=== PATIENT | female | born 1950 | race Caucasian/White ===

== ENCOUNTER 2016-12-12 21:03 | Emergency (ER) | payer OTHER ==
[~2016-12-12] VITALS: Ht 165.1 cm; Wt 119.2 kg
[~2016-12-12 21:03] MED LIST: AMLO10TA4 PO; ATEN100T PO; ATOR10TA88 PO; GLC500 PO; LISI-725 PO; LSX20 PO; PRLSR20 PO
[2016-12-12 21:16] VITALS: Ht 165.1 cm; Wt 119.2 kg
[2016-12-12] MEDS ORDERED: PANT40TA PO (21:42)
[2016-12-12] MEDS ORDERED: FAMOTIDINE 20MG/102 ML D5W IV STA (21:48)
[2016-12-12] MEDS ORDERED: ALUMINUM/MAGNESIUM SUSP 30 ML UDC PO STA ×2 (21:48→23:27)
[2016-12-12] MEDS ORDERED: LIDOCAINE HCL 2% VISC SOLN 20 ML UDC PO STA (21:48)
[2016-12-12 22:23] LABS: BASO % 0.2 %; BASO ABS # 0.02 K/uL (0-0.2); COMPLETE YES; EOS % 2.7 %; HEMATOCRIT 42.3 % (37-47); IG% 0.2 %; LYMPH % 22.3 %; LYMPH ABS # 1.83 K/uL (1.2-3.4); MEAN CELL VOLUME 93.2 fL (80-100); MEAN CORPUSCULAR HEMOGLOBIN 31.7 pg (25-34); MEAN PLATELET VOLUME 10.8 fL (7.4-10.4); NEUT % 65.6 %; PLATELET COUNT 388 K/uL (130-400); RED BLOOD COUNT 4.54 M/uL (4.2-5.4); WHITE BLOOD COUNT 8.19 K/uL (4.8-10.8)
--- NOTE | 2016-12-12 22:40 | DIAGNOSTIC IMAGING REPORT ---
CHEST ONE VIEW PORTABLE HISTORY: Atypical chest pain. COMPARISON: Chest 05/14/2009. FINDINGS: The heart remains mildly enlarged. No focal lung consolidations to suggest pneumonia. No evidence for pulmonary edema. No pleural effusions. No pneumothorax. IMPRESSION: Stable mild cardiomegaly. No acute process within the chest. Electronically signed by: Carson Ledesma M.D. 12/12/2016 10:38 PM Dictated Date/Time: 12/12/2016 10:37 PM
[2016-12-12 22:47] LABS: BUN/CREATININE RATIO 25.1 (10-20); CALCIUM 9.2 mg/dl (8.5-10.1); CREATININE 0.99 mg/dl (0.60-1.20); POTASSIUM 3.7 mmol/L (3.5-5.1)
[2016-12-12 23:04] LABS: PARTIAL THROMBOPLASTIN RATIO 1.1; PROTHROMBIN TIME (PATIENT) 10.9 SECONDS (9.0-12.0)
[2016-12-12 23:40] VITALS: BP 158/91; PULSE 92; TEMP 36.5; O2SAT 95
--- NOTE | 2016-12-13 01:45 | EMERGENCY ROOM VISIT NOTE ---
History Report prepared by Joce: Merissa Chacon Under the Supervision of: Dr. Fernandez Corbett M.D. First contact with patient: 21:35 Chief Complaint: OTHER COMPLAINT Stated Complaint: HEART BURN History of Present Illness The patient is a 66 year old female who presents to the Emergency Room with complaints of constant heart burn beginning earlier today. The patient has a history of heart burn for years. She was on Prilosec but her doctor switched her to Protonix which she states doesn't work as well for her. She states that she has not taken her Protonix for the past week because she kept forgetting to fill the prescription. She reports a burning sensation in her stomach, up into her esophagus, and into her throat. She notes a bad taste in her mouth. The patient denies chest pain, shortness of breath, diaphoresis, and lightheadedness. She spoke with a nurse today who advised her to come to the ED. She took her Protonix today at 3pm. The patient was diagnosed with a sinus infection yesterday and was started on Keflex. She rates her current pain as a 5 /10. Source of History: patient Onset: earlier today Position: chest Symptom Intensity: 5/10 Quality: burning Timing: constant Modifying Factors (Worsening): other (medication noncompliance) Associated Symptoms: No SOB, No chest pain, No diaphoresis Review of Systems See HPI for pertinent positives & negatives. A total of 10 systems reviewed and were otherwise negative. Past Medical & Surgical Medical Problems: (1) Diabetes mellitus (2) HTN (hypertension) Family History Cancer Diabetes mellitus FH: heart disease Hypertension Kidney disease Kidney stones Social History Smoking Status: Former Smoker Alcohol Use: none Drug Use: none Marital Status: Current/Historical Medications Scheduled Amlodipine Besylate (Norvasc), 10 MG PO QPM Atenolol (Tenormin), 100 MG PO DAILY Atenolol (Tenormin), 50 MG PO QPM Atorvastatin (Lipitor), 10 MG PO DAILY Lisinopril (Zestril), 20 MG PO BID Metformin Hcl (Glucophage *), 500 MG PO BID Pantoprazole (Protonix), 40 MG PO DAILY Allergies Coded Allergies: Adhesives (Verified Allergy, Unknown, UNKN, 12/12/16) Diphenhydramine (Verified Allergy, Unknown, UNKN, 12/12/16) Fexofenadine (Verified Allergy, Unknown, UNKN, 12/12/16) Latex1 -Allergic Contact Dermititis (Verified Allergy, Unknown, RASH, ) Morphine (Verified Allergy, Unknown, UNKN, 12/12/16) Sulfa Drugs (Verified Allergy, Unknown, UNKN, 12/12/16) Prednisone (Verified Adverse Reaction, Unknown, TACHYCARDIA, 12/12/16) Uncoded Allergies: SYMPATHOMIMADR (Adverse Reaction, Unknown, HYPER, 12/15/09) Physical Exam Vital Signs Date Time Temp Pulse Resp B/P Pulse Ox O2 Delivery O2 Flow Rate FiO2 12/12/16 23:40 36.5 92 18 158/91 95 12/12/16 23:39 92 18 158/91 95 Room Air 12/12/16 22:28 Room Air 12/12/16 21:16 36.5 92 18 178/93 95 Room Air Physical Exam Constitutional: Vital signs reviewed. Eyes: Pupils are equal round reactive to light. Conjunctiva are noninjected. ENT: Pharynx is clear without erythema or exudate. Mucous membranes are moist. Neck supple without meningeal signs. Respiratory: Clear to auscultation bilaterally. Breath sounds are equal bilaterally. Cardiovascular: Regular rate and rhythm. No rubs or gallops. GI: Soft, nondistended and nontender. Bowel sounds are present. Musculoskeletal: No peripheral edema. No lower extremity tenderness. Integumentary: No cyanosis. Neurological: The patient is awake and alert. No focal deficits. Psychiatric: Normal affect. Medical Decision & Procedures ER Provider Diagnostic Interpretation: Radiology results as stated below per my review and the radiologist's interpretation: CHEST ONE VIEW PORTABLE HISTORY: Atypical chest pain. COMPARISON: Chest 05/14/2009. FINDINGS: The heart remains mildly enlarged. No focal lung consolidations to suggest pneumonia. No evidence for pulmonary edema. No pleural effusions. No pneumothorax. IMPRESSION: Stable mild cardiomegaly. No acute process within the chest. Electronically signed by: Carson Ledesma M.D. 12/12/2016 10:38 PM Dictated Date/Time: 12/12/2016 10:37 PM Laboratory Results 12/12/16 22:10 Red Blood Count 4.54, Mean Corpuscular Volume 93.2, Mean Corpuscular Hemoglobin 31.7, Mean Corpuscular Hemoglobin Concent 34.0, Mean Platelet Volume 10.8, Neutrophils (%) (Auto) 65.6, Lymphocytes (%) (Auto) 22.3, Monocytes (%) (Auto) 9.0, Eosinophils (%) (Auto) 2.7, Basophils (%) (Auto) 0.2, Neutrophils # (Auto) 5.36, Lymphocytes # (Auto) 1.83, Monocytes # (Auto) 0.74, Eosinophils # (Auto) 0.22, Basophils # (Auto) 0.02 12/12/16 22:10 Test 12/12/16 22:10 12/12/16 22:18 12/12/16 23:29 White Blood Count 8.19 K/uL (4.8-10.8) Red Blood Count 4.54 M/uL (4.2-5.4) Hemoglobin 14.4 g/dL (12.0-16.0) Hematocrit 42.3 % (37-47) Mean Corpuscular Volume 93.2 fL (80-100) Mean Corpuscular Hemoglobin 31.7 pg (25-34) Mean Corpuscular Hemoglobin Concent 34.0 g/dl (32-36) Platelet Count 388 K/uL (130-400) Mean Platelet Volume 10.8 fL (7.4-10.4) Neutrophils (%) (Auto) 65.6 % Lymphocytes (%) (Auto) 22.3 % Monocytes (%) (Auto) 9.0 % Eosinophils (%) (Auto) 2.7 % Basophils (%) (Auto) 0.2 % Neutrophils # (Auto) 5.36 K/uL (1.4-6.5) Lymphocytes # (Auto) 1.83 K/uL (1.2-3.4) Monocytes # (Auto) 0.74 K/uL (0.11-0.59) Eosinophils # (Auto) 0.22 K/uL (0-0.5) Basophils # (Auto) 0.02 K/uL (0-0.2) RDW Standard Deviation 46.1 fL (36.4-46.3) RDW Coefficient of Variation 13.5 % (11.5-14.5) Immature Granulocyte % (Auto) 0.2 % Immature Granulocyte # (Auto) 0.02 K/uL (0.00-0.02) Prothrombin Time 10.9 SECONDS (9.0-12.0) Prothromb Time International Ratio 1.0 (0.9-1.1) Activated Partial Thromboplast Time 29.2 SECONDS (21.0-31.0) Partial Thromboplastin Ratio 1.1 Anion Gap 10.0 mmol/L (3-11) Est Creatinine Clear Calc Drug Dose 71.3 ml/min Estimated GFR () 68.3 Estimated GFR (Non- 59.0 BUN/Creatinine Ratio 25.1 (10-20) Calcium Level 9.2 mg/dl (8.5-10.1) Bedside Troponin I 0.000 ng/ml (0-0.045) Bedside Glucose 133 mg/dl (70-90) Laboratory results as reviewed by me. Medications Administered Medications (Trade) Dose Ordered Sig/Ashley Route Start Time Stop Time Status Last Admin Dose Admin Lidocaine HCl (Viscous Lidocaine 2% Soln) 10 ml NOW STAT PO 12/12/16 21:48 12/12/16 21:49 DC 12/12/16 22:23 10 ML Al Hydroxide/Mg Hydroxide (Maalox Susp) 30 ml NOW STAT PO 12/12/16 21:48 12/12/16 21:49 DC 12/12/16 22:23 30 ML Famotidine (Pepcid 20mg/100 ml) 20 mg ONE STAT IV 12/12/16 21:48 12/12/16 21:49 DC 12/12/16 22:23 20 MG Al Hydroxide/Mg Hydroxide (Maalox Susp) 30 ml NOW STAT PO 12/12/16 23:27 12/12/16 23:28 DC 12/12/16 23:38 30 ML ECG Indication: chest pain Rate (beats per minute): 87 Rhythm: normal sinus Findings: no acute ischemic change, no ectopy ED Course 2134: The patient was evaluated in room C5. A complete history and physical exam was performed. 2147: Famotidine 20 mg IV, Maalox Susp 30 ml PO, Lidocaine HCl 10 ml PO 2208: I reassessed the patient. She has just received her GI cocktail. 2306: I reassessed the patient at this time. Her heart burn is much better after her GI cocktail, although she notes that she is burping more. She denies abdominal pain or chest pain. I discussed the results and treatment plan with the patient as well as return instructions. I answered all pertaining questions that she had. She expressed understanding and verbalized agreement. The patient will be discharged home. Medical Decision This is a 66-year-old female who presents with burning in her chest into her throat. Differential diagnosis includes GERD, heartburn, esophagitis, CT, pleurisy. I did perform a limited focused review of portions of the patient's old chart on the electronic medical record. The patient has had no recent pertinent visits to this hospital. I did evaluate the patient as noted above. The patient is presenting with burning in her chest into her throat with a bad taste in her mouth. She has a long-standing history of heartburn and states it feels similar to her previous heartburn. She has not taken her Protonix for the past week because she has not refilled her prescription. She states she has no chest pain, shortness breath, lightheadedness or diaphoresis. She called her doctor's nurse who recommended she be evaluated in the ED. IV access was established. The patient was placed on a continuous director of cardiac rehabilitation. I did order and personally review the patient's 12-lead EKG and chest x-ray as described above. There are no acute ischemic changes on 12 EKG. I did order and review the patient's blood work as noted in the electronic medical record. Her troponin is negative. I did treat the patient with a GI cocktail and Pepcid IV. I did reassess the patient. Her symptoms were significantly improved after the medications I gave her. She does state that they started to come back slightly and requested a dose of Maalox to go home with. She was advised to continue taking her Protonix and was given return instructions as outlined below. She was discharged in good condition. Impression Primary Impression: Heart burn Scribe Attestation The scribe's documentation has been prepared under my direct and personally reviewed by me in its entirety. I confirm that the note above accurately reflects all work, treatment, procedures, and medical decision making performed by me. Departure Information Dispostion Home / Self-Care Referrals Conner Dubois III, M.D. Forms HOME CARE DOCUMENTATION FORM, IMPORTANT VISIT INFORMATION, WORK / SCHOOL INSTRUCTIONS Patient Instructions ED GERD, My [facility] Additional Instructions You have been examined and treated today on an emergency basis only. This is not a substitute for, or an effort to provide, complete comprehensive medical care. It is impossible to recognize and treat all injuries or illnesses in a single emergency department visit. It is therefore important that you follow up closely with your physician. Call as soon as possible for an appointment. Return for worsening symptoms or if you develop fever, vomiting, abdominal pain , chest pain, shortness of breath, lightheadedness, profuse sweating or any other concerning symptoms.
== END 2016-12-12 23:41 | disposition home or self-care (01) ==
LOC: C.EDB 21:05 → C.EDC 23:41
DX: R12 Heartburn (principal); I10 Essential (primary) hypertension; E11.9 Type 2 diabetes mellitus without complications; Z79.899 Other long term (current) drug therapy; Z87.891 Personal history of nicotine dependence; Z79.84 Long term (current) use of oral hypoglycemic drugs; Z88.2 Allergy status to sulfonamides; Z88.5 Allergy status to narcotic agent; Z88.8 Allergy status to other drugs, medicaments and biological substances; Z80.9 Family history of malignant neoplasm, unspecified; Z83.3 Family history of diabetes mellitus; Z82.49 Family history of ischemic heart disease and other diseases of the circulatory system; Z84.1 Family history of disorders of kidney and ureter

== ENCOUNTER 2017-01-07 09:50 | Emergency (ER) | payer OTHER ==
[~2017-01-07] VITALS: Ht 165.1 cm; Wt 119.5 kg
[~2017-01-07 09:50] MED LIST changes: -LSX20 PO; +PANT40TA PO; -PRLSR20 PO
[2017-01-07 09:56] VITALS: TEMP 36.7; Ht 165.1 cm; Wt 119.5 kg
[2017-01-07] MEDS ORDERED: LIDOCAINE HCL 2% VISC SOLN 20 ML UDC PO STA (11:21)
[2017-01-07] MEDS ORDERED: ALUMINUM/MAGNESIUM SUSP 30 ML UDC PO STA (11:21)
[2017-01-07] MEDS ORDERED: LORAZEPAM 2 MG/ML 1 ML VIAL IV STA ×2 (11:21→11:25)
[2017-01-07] MEDS ORDERED: METOPROLOL TARTRATE 1 MG/ML VIAL IV STA ×2 (11:24→13:36)
[2017-01-07] MEDS ORDERED: PRLSR20 PO (11:33)
[2017-01-07] MEDS ORDERED: INDA1TAB3 PO (11:33)
[2017-01-07 12:00] VITALS: O2SAT 98
[2017-01-07 12:14] LABS: BASO % 0.4 %; BASO ABS # 0.03 K/uL (0-0.2); COMPLETE YES; EOS % 2.3 %; HEMATOCRIT 41.9 % (37-47); IG% 0.4 %; LYMPH % 17.7 %; LYMPH ABS # 1.47 K/uL (1.2-3.4); MEAN CELL VOLUME 90.7 fL (80-100); MEAN CORPUSCULAR HEMOGLOBIN 31.2 pg (25-34); MEAN CORPUSCULAR HGB CONC 34.4 g/dl (32-36); MEAN PLATELET VOLUME 10.6 fL (7.4-10.4); MONO % 6.6 %; NEUT % 72.6 %; PLATELET COUNT 359 K/uL (130-400); RED BLOOD COUNT 4.62 M/uL (4.2-5.4)
--- NOTE | 2017-01-07 12:16 | DIAGNOSTIC IMAGING REPORT ---
CHEST ONE VIEW PORTABLE CLINICAL HISTORY: Chest pain. COMPARISON STUDY: Chest radiograph December 12, 2016 per FINDINGS: Lung volumes are normal. Lungs are clear. There is no pneumothorax or pleural effusion. Borderline cardiomegaly is unchanged. There is no evidence of pulmonary edema. IMPRESSION: No acute cardiopulmonary findings. Electronically signed by: Avila Raphael M.D. 01/07/2017 12:15 PM Dictated Date/Time: 01/07/2017 12:14 PM
[2017-01-07 12:25] LABS: PARTIAL THROMBOPLASTIN RATIO 1.1; PROTHROMBIN TIME (PATIENT) 10.5 SECONDS (9.0-12.0)
[2017-01-07 12:33] LABS: BUN/CREATININE RATIO 24.7 (10-20); CALCIUM 9.8 mg/dl (8.5-10.1); CREATININE 0.74 mg/dl (0.60-1.20); POTASSIUM 3.7 mmol/L (3.5-5.1)
[2017-01-07] MEDS ORDERED: SUCRALFATE 1 GM/10 ML UDC PO STA (13:36)
[2017-01-07] MEDS ORDERED: CRFL PO (14:06)
[2017-01-07 14:24] VITALS: BP 164/78; PULSE 75; O2SAT 94
--- NOTE | 2017-01-07 17:43 | EMERGENCY ROOM VISIT NOTE ---
History Report prepared by Joce: Ellen Sheridan Under the Supervision of: Dr. Fernandez Corbett M.D. First contact with patient: 11:08 Chief Complaint: GI ASSESSMENT Stated Complaint: HEARTBURN Nursing Triage Summary: Pt states she was seen here and diagnosed with acid reflux, pt states she has been trying to get into her doc office, unable to, states still has the burning , taking omeprazole. bp in triage 194/90 - pt states she took her morning dose History of Present Illness The patient is a 66 year old female who presents to the Emergency Room with complaints of constant heartburn starting about a month ago. The patient was evaluated in the Emergency Room 3 weeks ago for similar symptoms. She had been given a GI cocktail with relief. She was discharged home. Since discharge, her symptoms have not improved. She describes it to be a burning sensation in her chest. She denies any bad taste in her mouth. She denies any worsening pain with eating or with certain foods. She denies a loss of appetite. She started taking the Protonix again since discharge. She did not have any relief with the Protonix. 3 days ago, she switched from Protonix to Prilosec without relief. She started having watery diarrhea today. She also complains of high blood pressure. She has a history of hypertension and has been taking her medications as prescribed. She denies diaphoresis, fevers, shortness of breath, vomiting, black/bloody stools, lower extremity pain/swelling, or any other complaints. Source of History: patient Onset: about a month ago Position: chest Quality: other (heartburn) Timing: constant Modifying Factors (Relieving): other (Boost, Prilosec, Protonix without relief) Associated Symptoms: + diarrhea, No SOB, No diaphoresis, No fevers, No vomiting Review of Systems See HPI for pertinent positives & negatives. A total of 10 systems reviewed and were otherwise negative. Past Medical & Surgical Medical Problems: (1) Diabetes mellitus (2) HTN (hypertension) Family History Cancer Diabetes mellitus FH: heart disease Hypertension Kidney disease Kidney stones Social History Smoking Status: Former Smoker Alcohol Use: none Drug Use: none Marital Status: Current/Historical Medications Scheduled Amlodipine Besylate (Norvasc), 10 MG PO QPM Atenolol (Tenormin), 100 MG PO DAILY Atenolol (Tenormin), 50 MG PO QPM Atorvastatin (Lipitor), 10 MG PO DAILY Indapamide (Lozol), 1.25 MG PO DAILY Lisinopril (Zestril), 20 MG PO BID Metformin Hcl (Glucophage *), 500 MG PO BID Omeprazole (Prilosec), 20 MG PO DAILY Sucralfate (Carafate), 10 ML PO BID Allergies Coded Allergies: Adhesives (Verified Allergy, Unknown, UNKN, 01/07/17) Diphenhydramine (Verified Allergy, Unknown, UNKN, 01/07/17) Fexofenadine (Verified Allergy, Unknown, UNKN, 01/07/17) Latex1 -Allergic Contact Dermititis (Verified Allergy, Unknown, RASH, 01/07) Morphine (Verified Allergy, Unknown, UNKN, 01/07/17) Sulfa Drugs (Verified Allergy, Unknown, UNKN, 01/07/17) Prednisone (Verified Adverse Reaction, Unknown, TACHYCARDIA, 01/07/17) Uncoded Allergies: SYMPATHOMIMADR (Adverse Reaction, Unknown, HYPER, 12/15/09) Physical Exam Vital Signs Date Time Temp Pulse Resp B/P Pulse Ox O2 Delivery O2 Flow Rate FiO2 01/07/17 14:24 75 20 164/78 94 01/07/17 14:01 74 20 153/66 99 01/07/17 13:58 72 141/95 01/07/17 13:17 71 13 180/89 94 Room Air 01/07/17 12:06 70 19 172/85 94 Room Air 01/07/17 12:00 98 Room Air 01/07/17 11:59 79 203/107 01/07/17 11:00 77 16 203/107 98 Room Air 01/07/17 09:56 36.7 77 18 194/90 99 Room Air Physical Exam Constitutional: Vital signs reviewed. Eyes: Pupils are equal round reactive to light. Conjunctiva are noninjected. ENT: Pharynx is clear without erythema or exudate. Mucous membranes are moist. Neck supple without meningeal signs. Respiratory: Clear to auscultation bilaterally. Breath sounds are equal bilaterally. Cardiovascular: Regular rate and rhythm. No rubs or gallops. GI: Soft, nondistended and nontender. Bowel sounds are present. Musculoskeletal: No peripheral edema. No lower extremity tenderness. Integumentary: No cyanosis. Neurological: The patient is awake and alert. No focal deficits. Psychiatric: Anxious. Medical Decision & Procedures ER Provider Diagnostic Interpretation: X-ray results as stated below per interpretation by me and the radiologist: CHEST ONE VIEW PORTABLE CLINICAL HISTORY: Chest pain. COMPARISON STUDY: Chest radiograph December 12, 2016 per FINDINGS: Lung volumes are normal. Lungs are clear. There is no pneumothorax or pleural effusion. Borderline cardiomegaly is unchanged. There is no evidence of pulmonary edema. IMPRESSION: No acute cardiopulmonary findings. Electronically signed by: Avila Raphael M.D. 01/07/2017 12:15 PM Dictated Date/Time: 01/07/2017 12:14 PM Laboratory Results 01/07/17 11:55 Red Blood Count 4.62, Mean Corpuscular Volume 90.7, Mean Corpuscular Hemoglobin 31.2, Mean Corpuscular Hemoglobin Concent 34.4, Mean Platelet Volume 10.6, Neutrophils (%) (Auto) 72.6, Lymphocytes (%) (Auto) 17.7, Monocytes (%) (Auto) 6.6, Eosinophils (%) (Auto) 2.3, Basophils (%) (Auto) 0.4, Neutrophils # (Auto) 6.03, Lymphocytes # (Auto) 1.47, Monocytes # (Auto) 0.55, Eosinophils # (Auto) 0.19, Basophils # (Auto) 0.03 01/07/17 11:55 Test 01/07/17 11:55 White Blood Count 8.30 K/uL (4.8-10.8) Red Blood Count 4.62 M/uL (4.2-5.4) Hemoglobin 14.4 g/dL (12.0-16.0) Hematocrit 41.9 % (37-47) Mean Corpuscular Volume 90.7 fL (80-100) Mean Corpuscular Hemoglobin 31.2 pg (25-34) Mean Corpuscular Hemoglobin Concent 34.4 g/dl (32-36) Platelet Count 359 K/uL (130-400) Mean Platelet Volume 10.6 fL (7.4-10.4) Neutrophils (%) (Auto) 72.6 % Lymphocytes (%) (Auto) 17.7 % Monocytes (%) (Auto) 6.6 % Eosinophils (%) (Auto) 2.3 % Basophils (%) (Auto) 0.4 % Neutrophils # (Auto) 6.03 K/uL (1.4-6.5) Lymphocytes # (Auto) 1.47 K/uL (1.2-3.4) Monocytes # (Auto) 0.55 K/uL (0.11-0.59) Eosinophils # (Auto) 0.19 K/uL (0-0.5) Basophils # (Auto) 0.03 K/uL (0-0.2) RDW Standard Deviation 43.3 fL (36.4-46.3) RDW Coefficient of Variation 13.2 % (11.5-14.5) Immature Granulocyte % (Auto) 0.4 % Immature Granulocyte # (Auto) 0.03 K/uL (0.00-0.02) Prothrombin Time 10.5 SECONDS (9.0-12.0) Prothromb Time International Ratio 1.0 (0.9-1.1) Activated Partial Thromboplast Time 28.8 SECONDS (21.0-31.0) Partial Thromboplastin Ratio 1.1 Anion Gap 8.0 mmol/L (3-11) Est Creatinine Clear Calc Drug Dose 95.5 ml/min Estimated GFR () 97.2 Estimated GFR (Non- 83.8 BUN/Creatinine Ratio 24.7 (10-20) Calcium Level 9.8 mg/dl (8.5-10.1) Total Bilirubin 0.5 mg/dl (0.2-1) Direct Bilirubin 0.1 mg/dl (0-0.2) Aspartate Amino Transf (AST/SGOT) 17 U/L (15-37) Alanine Aminotransferase (ALT/SGPT) 19 U/L (12-78) Alkaline Phosphatase 81 U/L (45-117) Troponin I < 0.015 ng/ml (0-0.045) Total Protein 8.3 gm/dl (6.4-8.2) Albumin 4.1 gm/dl (3.4-5.0) Lipase 195 U/L (73-393) Laboratory results as reviewed by me. Medications Administered Medications (Trade) Dose Ordered Sig/Ashley Route Start Time Stop Time Status Last Admin Dose Admin Lidocaine HCl (Viscous Lidocaine 2% Soln) 10 ml NOW STAT PO 01/07/17 11:21 01/07/17 11:23 DC 01/07/17 11:57 10 ML Al Hydroxide/Mg Hydroxide (Maalox Susp) 30 ml NOW STAT PO 01/07/17 11:21 01/07/17 11:24 DC 01/07/17 11:58 30 ML Metoprolol Tartrate (Lopressor Iv) 2.5 mg NOW STAT IV 01/07/17 11:24 01/07/17 11:25 DC 01/07/17 11:59 2.5 MG Lorazepam (Ativan Inj) 0.5 mg NOW STAT IV 01/07/17 11:25 01/07/17 11:26 DC 01/07/17 11:58 0.5 MG Sucralfate (Carafate Susp) 1 gm NOW STAT PO 01/07/17 13:36 01/07/17 13:38 DC 01/07/17 14:07 1 GM Metoprolol Tartrate (Lopressor Iv) 2.5 mg NOW STAT IV 01/07/17 13:36 01/07/17 13:38 DC 01/07/17 13:58 0.5 MG ECG Indication: other (heartburn) Rate (beats per minute): 70 Rhythm: normal sinus Findings: Q waves (Lead III), no acute ischemic change, no ectopy Comparison ECG Date: December 12, 2016 Change: Q wave in lead III was present on EKG from December 12, 2016. ED Course 1108: The patient was evaluated in room C06. A complete history and physical exam was performed. 1121: Ativan Inj 1 mg IV, Maalox Susp 30 ml PO, Lidocaine HCl 10 ml PO 1124: Lopressor IV 2.5 mg IV 1125: Ativan Inj 0.5 mg IV 1204: I reevaluated the patient. Her blood pressure is 172/85. Her heartburn has improved. 1324: The patient's blood pressure is now 180/189. I informed her that I will talk to GI and she expressed her appreciation. 1334: I discussed the patient's case with Dr. Nagy, research contracts supervisor with [facility]. 1336: Lopressor IV 2.5 mg IV, Sucralfate 1 gm PO 1405: Upon reevaluation, the patient appeared to have improvement of her symptoms. Her blood pressure is 153/66. She only received 1.25 mg of Lopressor since she reported that her current blood pressure is normal for her. She is happy with the plan to see Dr. Nagy within the week. The patient will be discharged home. Medical Decision This is a 66-year-old female presents with persistent heartburn. Differential diagnosis considered includes esophagitis, GERD, peptic ulcer disease, thrush, ME. I did perform a limited focused review of portions of the patient's old chart on the electronic medical record. I saw the patient on the December 12 for heart burn which she has had for years. Her symptoms worsened because she had not taken her Protonix for a week. She was given a GI cocktail and she had significant improvement in her symptoms. I did evaluate the patient as noted above. The patient is presenting with persistent heartburn which she has had for some time. It has gotten worse over the past 2 weeks and I did see her earlier this month for the same symptoms. She states that she has been taking the Protonix but it did not seem to help her. She then switched to omeprazole 3 days ago without any change in her symptoms. She otherwise has no complaints. She states the heartburn has been persistent for 3 weeks but she is able to eat and drink. IV access was established. The patient was placed on a continuous groundwater monitoring technician. I did order and personally review the patient's 12-lead EKG and chest x-ray as described above. There are no acute ischemic changes on her twelve-lead EKG. Her chest x-ray does not show any free air. I did order and review the patient' s blood work as noted in the electronic medical record. Troponin is negative. Her white blood cell count is not elevated. LFTs are unremarkable. I did treat the patient with a GI cocktail. She was also given Ativan for anxiety. She had requested a "nerve pill." On reassessment she is feeling much better. Her heartburn is significantly improved and she is much less actions. Her blood pressure was also elevated and she was given a dose of Lopressor 2.5 mg IV. She was then given an additional dose of 1.25 mg IV and her blood pressure came down to her baseline. She states that her blood pressure was high because she was so stressed from the heartburn and having to deal with it for such a long period of time. I did discuss the case with Dr. Nagy of gastroenterology. He stated that he or his nurse practitioner would be able to see her within a week and schedule an outpatient EGD. He recommended adding Carafate and continuing her Protonix. I did treat patient with Carafate. She was given a prescription for Carafate and advised to continue her Protonix as prescribed. The patient was happy with this plan and discharged in good condition. She was given return instructions as outlined below. Consults Time Called: 1330 Consulting Physician: Dr. Nagy, research contracts supervisor with [facility] Returned Call: 1332 I discussed the patient's case with Dr. Nagy, research contracts supervisor with [facility]. Impression Primary Impression: Heartburn Additional Impression: Poorly-controlled hypertension Scribe Attestation The scribe's documentation has been prepared under my direct and personally reviewed by me in its entirety. I confirm that the note above accurately reflects all work, treatment, procedures, and medical decision making performed by me. Departure Information Dispostion Home / Self-Care Prescriptions Sucralfate (CARAFATE) 1 Gm/10 Ml Elayne 10 ML PO BID for 7 Days, #140 ML 1 Refill Prov: Fernandez Corbett M.D. 01/07/17 Referrals Tito Nagy, Conner Jewell III, M.D. Forms HOME CARE DOCUMENTATION FORM, IMPORTANT VISIT INFORMATION Patient Instructions ED GERD, My [facility] Additional Instructions You have been examined and treated today on an emergency basis only. This is not a substitute for, or an effort to provide, complete comprehensive medical care. It is impossible to recognize and treat all injuries or illnesses in a single emergency department visit. It is therefore important that you follow up closely with your physician and Dr. Nagy of gastroenterology. His office will call you for an appointment but if you do not hear from them within the next day or so call his office. Return if you develop fever, vomiting, shortness breath, profuse sweating, chest pain, black or bloody stools or any other concerning symptoms. Resume protonix. Problem Qualifiers
== END 2017-01-07 14:26 | disposition home or self-care (01) ==
LOC: C.EDB 09:52 → C.EDC 14:26
DX: R12 Heartburn (principal); E11.9 Type 2 diabetes mellitus without complications; I10 Essential (primary) hypertension; Z83.3 Family history of diabetes mellitus; Z82.49 Family history of ischemic heart disease and other diseases of the circulatory system; Z87.891 Personal history of nicotine dependence

== ENCOUNTER 2017-02-22 01:03 | Emergency (ER) | payer OTHER ==
[~2017-02-22] VITALS: Ht 165.1 cm; Wt 120.5 kg
[~2017-02-22 01:03] MED LIST changes: +ATOR10TA82 PO; -ATOR10TA88 PO; +CRFL PO; +INDA1TAB3 PO; -PANT40TA PO; +PRLSR20 PO
[2017-02-22 01:07] VITALS: TEMP 36.6; Ht 165.1 cm; Wt 120.5 kg
[2017-02-22] MEDS ORDERED: ALUMINUM/MAGNESIUM SUSP 30 ML UDC PO STA (01:18)
[2017-02-22] MEDS ORDERED: LIDOCAINE HCL 2% VISC SOLN 20 ML UDC PO STA (01:18)
--- NOTE | 2017-02-22 01:25 | EMERGENCY ROOM VISIT NOTE ---
History Report prepared by Joce: Elana Jameson Under the Supervision of: Dr. Misti Pascal M.D. First contact with patient: 01:08 Chief Complaint: OTHER COMPLAINT Stated Complaint: HEARTBURN History of Present Illness The patient is a 67 year old female who presents to the Emergency Room with complaints of waxing and waning heart burn that began two months ago. She currently rates her discomfort as an 8/10 in severity. The patient states that over the last two days her symptoms have worsened. She states that she was previously taking Protonix each morning for her heart burn, but states that after seeing her doctor yesterday, she was instructed to start taking two Protonix each morning. The patient states that this morning she took the two Prilosec and then also took a Carafate an hour and a half ago. She states that today she became concerned that the pain is related to her heart, but still believes it is her heart burn. The patient denies the pain radiating into her back or arms. She notes a history of two previous heart catheterizations in 1989 and 1998. The patient states that at this time, her provider believed that her pain was related to her acid reflux. She denies any previous stress test. The patient states that she was scheduled for an endoscopy, but states that it was cancelled due to a sinus infection. She states that her endoscopy was rescheduled for the end of February. The patient denies any aspirin, ibuprofen , or Aleve use. The patient states that she recently gained a couple pounds. She states that she has a history of cholecystectomy. The patient states that over the last two months, she has been increasingly stressed and anxious. Source of History: patient Onset: two months ago Position: other (global) Symptom Intensity: 8/10 Quality: other (heart burn) Timing: waxes/wanes, worsening Note: Associated Symptoms: increased stress and anxiety. Review of Systems See HPI for pertinent positives & negatives. A total of 10 systems reviewed and were otherwise negative. Past Medical & Surgical Medical Problems: (1) Diabetes mellitus (2) HTN (hypertension) Family History Cancer Diabetes mellitus FH: heart disease Hypertension Kidney disease Kidney stones Social History Smoking Status: Never Smoker Alcohol Use: none Drug Use: none Marital Status: Occupation Status: retired Current/Historical Medications Scheduled Amlodipine Besylate (Norvasc), 10 MG PO QPM Atenolol (Tenormin), 100 MG PO DAILY Atenolol (Tenormin), 50 MG PO QPM Atorvastatin (Lipitor), 40 MG PO DAILY Indapamide (Lozol), 2.5 MG PO DAILY Lisinopril (Zestril), 20 MG PO BID Metformin Hcl (Glucophage), 500 MG PO BID Omeprazole (Prilosec), 20 MG PO DAILY Pantoprazole (Protonix), 40 MG PO DAILY Trazodone Hcl (Trazodone), 50 MG PO HS Scheduled PRN Ranitidine Hcl (Zantac), 150 MG PO BID PRN for GERD Allergies Coded Allergies: Adhesives (Verified Allergy, Unknown, UNKN, 02/22/17) Diphenhydramine (Verified Allergy, Unknown, UNKN, 02/22/17) Fexofenadine (Verified Allergy, Unknown, UNKN, 02/22/17) Latex1 -Allergic Contact Dermititis (Verified Allergy, Unknown, RASH, 02/22) Morphine (Verified Allergy, Unknown, UNKN, 02/22/17) Sulfa Drugs (Verified Allergy, Unknown, UNKN, 02/22/17) Prednisone (Verified Adverse Reaction, Unknown, TACHYCARDIA, 02/22/17) Uncoded Allergies: SYMPATHOMIMADR (Adverse Reaction, Unknown, HYPER, 12/15/09) Physical Exam Vital Signs Date Time Temp Pulse Resp B/P Pulse Ox O2 Delivery O2 Flow Rate FiO2 02/22/17 04:39 76 18 126/66 100 02/22/17 02:03 75 18 02/22/17 02:00 155/85 02/22/17 01:43 151/83 02/22/17 01:43 86 18 151/83 02/22/17 01:08 197/94 02/22/17 01:07 36.6 87 18 197/94 99 Room Air Physical Exam Vital signs reviewed. General: Well-appearing older female, in no significant distress. HEENT: No scleral icterus, PERRLA, neck supple. Atraumatic. Cardiovascular: Regular rate and rhythm, no extra sounds. Pulmonary: Clear to auscultation bilaterally, normal work of breathing. Abdomen: Obese. Soft, nontender, nondistended, positive bowel sounds. Musculoskeletal: Atraumatic, no peripheral edema. Neurologic: Patient awake alert and oriented x 3 Skin: Warm, dry, no rash Medical Decision & Procedures ER Provider Diagnostic Interpretation: 1 view chest x-ray: no focal lung consolidation, no failure. Laboratory Results 02/22/17 01:37 Red Blood Count 4.41, Mean Corpuscular Volume 92.3, Mean Corpuscular Hemoglobin 31.3, Mean Corpuscular Hemoglobin Concent 33.9, Mean Platelet Volume 10.6, Neutrophils (%) (Auto) 64.4, Lymphocytes (%) (Auto) 23.8, Monocytes (%) (Auto) 9.1, Eosinophils (%) (Auto) 2.3, Basophils (%) (Auto) 0.3, Neutrophils # (Auto) 5.56, Lymphocytes # (Auto) 2.06, Monocytes # (Auto) 0.79, Eosinophils # (Auto) 0.20, Basophils # (Auto) 0.03 02/22/17 01:37 Test 02/22/17 01:37 02/22/17 01:43 02/22/17 02:55 White Blood Count 8.65 K/uL (4.8-10.8) Red Blood Count 4.41 M/uL (4.2-5.4) Hemoglobin 13.8 g/dL (12.0-16.0) Hematocrit 40.7 % (37-47) Mean Corpuscular Volume 92.3 fL (80-100) Mean Corpuscular Hemoglobin 31.3 pg (25-34) Mean Corpuscular Hemoglobin Concent 33.9 g/dl (32-36) Platelet Count 370 K/uL (130-400) Mean Platelet Volume 10.6 fL (7.4-10.4) Neutrophils (%) (Auto) 64.4 % Lymphocytes (%) (Auto) 23.8 % Monocytes (%) (Auto) 9.1 % Eosinophils (%) (Auto) 2.3 % Basophils (%) (Auto) 0.3 % Neutrophils # (Auto) 5.56 K/uL (1.4-6.5) Lymphocytes # (Auto) 2.06 K/uL (1.2-3.4) Monocytes # (Auto) 0.79 K/uL (0.11-0.59) Eosinophils # (Auto) 0.20 K/uL (0-0.5) Basophils # (Auto) 0.03 K/uL (0-0.2) RDW Standard Deviation 45.2 fL (36.4-46.3) RDW Coefficient of Variation 13.3 % (11.5-14.5) Immature Granulocyte % (Auto) 0.1 % Immature Granulocyte # (Auto) 0.01 K/uL (0.00-0.02) Anion Gap 5.0 mmol/L (3-11) Est Creatinine Clear Calc Drug Dose 86.4 ml/min Estimated GFR () 86.5 Estimated GFR (Non- 74.6 BUN/Creatinine Ratio 16.7 (10-20) Calcium Level 9.1 mg/dl (8.5-10.1) Magnesium Level 1.7 mg/dl (1.8-2.4) Total Bilirubin 0.6 mg/dl (0.2-1) Direct Bilirubin 0.2 mg/dl (0-0.2) Aspartate Amino Transf (AST/SGOT) 12 U/L (15-37) Alanine Aminotransferase (ALT/SGPT) 18 U/L (12-78) Alkaline Phosphatase 81 U/L (45-117) Total Creatine Kinase 22 U/L (26-192) Creatine Kinase MB < 0.5 ng/ml (0.5-3.6) Creatine Kinase MB Ratio (0-3.0) Total Protein 7.7 gm/dl (6.4-8.2) Albumin 4.0 gm/dl (3.4-5.0) Bedside Troponin I 0.000 ng/ml (0-0.045) Urine Color YELLOW Urine Appearance CLEAR (CLEAR) Urine pH 5.5 (4.5-7.5) Urine Specific [place] 1.006 (1.000-1.030) Urine Protein NEG (NEG) Urine Glucose (UA) NEG (NEG) Urine Ketones NEG (NEG) Urine Occult Blood TRACE (NEG) Urine Nitrite NEG (NEG) Urine Bilirubin NEG (NEG) Urine Urobilinogen NEG (NEG) Urine Leukocyte Esterase TRACE (NEG) Urine WBC (Auto) 1-5 /hpf (0-5) Urine RBC (Auto) 0-4 /hpf (0-4) Urine Hyaline Casts (Auto) 0 /lpf (0-5) Urine Epithelial Cells (Auto) 5-10 /lpf (0-5) Urine Bacteria (Auto) NEG (NEG) Laboratory results per my review. Medications Administered Medications (Trade) Dose Ordered Sig/Ashley Route Start Time Stop Time Status Last Admin Dose Admin Lidocaine HCl (Viscous Lidocaine 2% Soln) 10 ml NOW STAT PO 02/22/17 01:18 02/22/17 01:21 DC 02/22/17 01:40 10 ML Al Hydroxide/Mg Hydroxide (Maalox Susp) 30 ml NOW STAT PO 02/22/17 01:18 02/22/17 01:21 DC 02/22/17 01:40 30 ML Famotidine (Pepcid Tab) 20 mg NOW ONCE PO 02/22/17 01:30 02/22/17 01:31 DC 02/22/17 01:40 20 MG Lorazepam (Ativan Tab) 0.5 mg NOW STAT SL 02/22/17 01:26 02/22/17 01:28 DC 02/22/17 01:40 0.5 MG ECG Indication: other (heart burn) Rate (beats per minute): 85 Rhythm: normal sinus Findings: nonspecific-ST abn, no ectopy, other (possible previous septal infarct) ED Course 0115: Past medical records reviewed. The patient was evaluated in room A2. A complete history and physical examination was performed. 0118: Ordered Maalox Susp 30 ml PO, Lidocaine HCl 10 ml PO. 0126: Ordered Ativan Tab 0.5 mg SL. 0130: Ordered Pepcid Tab 20 mg PO. 0407: I reevaluated the patient and she is resting comfortably. I discussed the exam findings with her and I discussed the treatment plan. She verbalized complete understanding and agreement. She is ready to go home. Medical Decision Acute coronary syndrome, pulmonary embolus, aortic dissection, musculoskeletal pain, pneumonia, pleural effusion, pneumothorax, GERD. This patient was evaluated and appeared to be in no significant distress. IV access was obtained and laboratory work was drawn. Patient's physical exam is fairly unrevealing. EKG reveals normal sinus rhythm without acute ST segment elevation. She does have a nonspecific ST abnormality. Laboratory work reveals negative cardiac enzymes 2. Patient's symptoms were resolved after GI cocktail and oral Pepcid. Patient has had cardiac catheterizations in the past. She denies any stent placement. She was placed on Prilosec 20 mg twice a day and Zantac 150 mg twice a day when necessary. She will follow-up with her physician this week for reevaluation and consideration of further cardiac testing. She will return to the ER for worsening of symptoms or any medical concerns. Impression Primary Impression: GERD (gastroesophageal reflux disease) Scribe Attestation The scribe's documentation has been prepared under my direction and personally reviewed by me in its entirety. I confirm that the note above accurately reflects all work, treatment, procedures, and medical decision making performed by me. Departure Information Dispostion Home / Self-Care Prescriptions Ranitidine Hcl (ZANTAC) 150 Mg Tab 150 MG PO BID Y for GERD, #60 TAB Prov: Misti Pascal M.D. 02/22/17 Referrals Conner Dubois III, M.D. (PCP) Forms HOME CARE DOCUMENTATION FORM, IMPORTANT VISIT INFORMATION, WORK / SCHOOL INSTRUCTIONS Patient Instructions My [facility] Additional Instructions Diagnosis: GERD Prilosec 20 mg twice daily. Zantac 150 mg twice daily as needed. Stop drinking soda altogether. Drink plenty of water. Avoid greasy and spicy foods. Follow-up with your physician this week for reevaluation and consideration of further cardiac testing. Return to the ER for worsening of symptoms or any medical concerns. Problem Qualifiers Primary Impression: GERD (gastroesophageal reflux disease) Esophagitis presence: esophagitis presence not specified Qualified Codes: K21.9 - Gastro-esophageal reflux disease without esophagitis
[2017-02-22] MEDS ORDERED: LORAZEPAM 0.5 MG TAB SL STA (01:26)
[2017-02-22] MEDS ORDERED: FAMOTIDINE 20 MG TAB PO ONE (01:30)
[2017-02-22 01:50] LABS: BASO % 0.3 %; BASO ABS # 0.03 K/uL (0-0.2); COMPLETE YES; EOS % 2.3 %; HEMATOCRIT 40.7 % (37-47); IG% 0.1 %; LYMPH % 23.8 %; LYMPH ABS # 2.06 K/uL (1.2-3.4); MEAN CELL VOLUME 92.3 fL (80-100); MEAN CORPUSCULAR HEMOGLOBIN 31.3 pg (25-34); MEAN CORPUSCULAR HGB CONC 33.9 g/dl (32-36); MEAN PLATELET VOLUME 10.6 fL (7.4-10.4); MONO % 9.1 %; NEUT % 64.4 %; PLATELET COUNT 370 K/uL (130-400); RED BLOOD COUNT 4.41 M/uL (4.2-5.4); WHITE BLOOD COUNT 8.65 K/uL (4.8-10.8)
[2017-02-22] MEDS ORDERED: GLC/500 PO (01:54)
[2017-02-22] MEDS ORDERED: trazadone PO (01:55)
[2017-02-22] MEDS ORDERED: TRAZ50TA35 PO (01:55)
[2017-02-22] MEDS ORDERED: PANT40TA PO (01:56)
[2017-02-22 02:08] LABS: ALT/SGPT 18 U/L (12-78); AST/SGOT 12 U/L (15-37); BLOOD UREA NITROGEN 14 mg/dl (7-18); BUN/CREATININE RATIO 16.7 (10-20); CALCIUM 9.1 mg/dl (8.5-10.1); CARBON DIOXIDE 32 mmol/L (21-32); CHLORIDE 106 mmol/L (98-107); CREATININE 0.81 mg/dl (0.60-1.20); GLUCOSE 116 mg/dl (70-99); MAGNESIUM 1.7 mg/dl (1.8-2.4); POTASSIUM 3.3 mmol/L (3.5-5.1); SODIUM 143 mmol/L (136-145)
[2017-02-22 02:13] LABS: ALKALINE PHOSPHATASE 81 U/L (45-117)
[2017-02-22 03:21] LABS: URINE APPEARANCE CLEAR (CLEAR); URINE BILIRUBIN NEG (NEG); URINE COLOR YELLOW; URINE NITRITE NEG (NEG); URINE PH 5.5 (4.5-7.5); URINE SPECIFIC GRAVITY 1.006 (1.000-1.030); UROBILINOGEN NEG (NEG); ZZUR CULT IF INDIC CLEAN CATCH NO
[2017-02-22 03:22] LABS: MANUAL MICROSCOPIC REQUIRED? NO; REVIEW REQ? NO
[2017-02-22] MEDS ORDERED: RANI150T3 PO (04:32)
[2017-02-22 04:39] VITALS: BP 126/66; PULSE 76; O2SAT 100
--- NOTE | 2017-02-22 07:55 | DIAGNOSTIC IMAGING REPORT ---
CHEST ONE VIEW PORTABLE HISTORY: Atypical chest pain COMPARISON: Chest 01/07/2017. FINDINGS: The lungs are clear. Cardiac silhouette is mildly enlarged, unchanged. No pleural effusions. No pneumothorax. IMPRESSION: No significant change compared to the prior study. No acute process. Electronically signed by: Carson Ledesma M.D. 02/22/2017 7:53 AM Dictated Date/Time: 02/22/2017 7:52 AM
== END 2017-02-22 04:40 | disposition home or self-care (01) ==
LOC: C.EDB 01:04 → C.EDA 04:40
DX: K21.9 Gastro-esophageal reflux disease without esophagitis (principal); E11.9 Type 2 diabetes mellitus without complications; I10 Essential (primary) hypertension; E66.9 Obesity, unspecified; Z79.84 Long term (current) use of oral hypoglycemic drugs; Z79.899 Other long term (current) drug therapy; Z82.49 Family history of ischemic heart disease and other diseases of the circulatory system; Z83.3 Family history of diabetes mellitus; Z84.1 Family history of disorders of kidney and ureter

== ENCOUNTER 2017-12-26 06:43 | Inpatient (IN) | payer OTHER ==
[2017-12-08 10:18] VITALS: BMI 43.0
--- NOTE | 2017-12-08 10:53 | PAT Medication Instructions ---
Service Date Dec 08, 2017. Current Home Medication List Acetaminophen (Tylenol), 1,000 MG PO BID Albuterol Hfa (Ventolin Hfa), 2 PUFFS INH Q6H PRN for PRN Amlodipine Besylate (Norvasc), 10 MG PO QPM Atenolol (Tenormin), 100 MG PO QAM Atenolol (Tenormin), 50 MG PO QPM Atorvastatin (Lipitor), 40 MG PO QPM Cyanocobalamin (Vitamin B12), 1,000 MCG PO QAM Diclofenac Sodium (Topical) (Voltaren 1% Top Gel), 1 DOSE TOP QID PRN for RN Indapamide (Lozol), 2.5 MG PO DAILY Lisinopril (Zestril), 20 MG PO BID Lorazepam (Ativan), 0.5 MG PO TID PRN for PRN Metformin Hcl (Glucophage), 500 MG PO BID Pantoprazole (Protonix), 40 MG PO QAM Medication Instructions For Your Scheduled Surgery - Hold the following medications 24 hours prior to surgery: Lisinopril (Zestril), 20 MG PO BID Diclofenac Sodium (Topical) (Voltaren 1% Top Gel), 1 DOSE TOP QID PRN for RN - Hold the following medications 48 hours prior to surgery: Metformin Hcl (Glucophage), 500 MG PO BID - Hold the following medications the morning of surgery: Cyanocobalamin (Vitamin B12), 1,000 MCG PO QAM Indapamide (Lozol), 2.5 MG PO DAILY - Take the following medications the morning of surgery with a sip of water: Pantoprazole (Protonix), 40 MG PO QAM Lorazepam (Ativan), 0.5 MG PO TID PRN for PRN (if needed) Acetaminophen (Tylenol), 1,000 MG PO BID (okay to take up to 4 hours prior to surgery if needed) Albuterol Hfa (Ventolin Hfa), 2 PUFFS INH Q6H PRN for PRN (if needed) Atenolol (Tenormin), 100 MG PO QAM - Take the following medications as scheduled the night before surgery: Lorazepam (Ativan), 0.5 MG PO TID PRN for PRN (if needed) Acetaminophen (Tylenol), 1,000 MG PO BID Albuterol Hfa (Ventolin Hfa), 2 PUFFS INH Q6H PRN for PRN (if needed) Atenolol (Tenormin), 50 MG PO QPM Atorvastatin (Lipitor), 40 MG PO QPM Amlodipine Besylate (Norvasc), 10 MG PO QPM If you have any questions please call us at [phone] or [phone] or [phone]
[2017-12-08 12:17] LABS: PTT PATIENT 28.5 SECONDS (21.0-31.0)
--- NOTE | 2017-12-25 07:00 | HISTORY & PHYSICAL EXAMINATION ---
DATE OF ADMISSION: 12/26/2017 HISTORY AND PHYSICAL ADMISSION NOTE PREOPERATIVE DIAGNOSIS: Primary osteoarthritis of the right hip. HISTORY OF PRESENT ILLNESS: Summer is a very pleasant 67-year-old female who has been dealing with chronic bilateral hip pain, right worse than left. X-rays and clinical examination have been diagnostic for advanced osteoarthritis of the right hip. After failing extensive conservative treatment, she has elected to proceed with a right total hip arthroplasty. She understands the risks, benefits, alternatives to the procedure and has elected to proceed. PAST MEDICAL HISTORY: Significant for hypertension, hyperlipidemia, anxiety, diabetes, osteoarthritis, obesity, and GERD. MEDICATIONS: Include: 1. Zofran 4 mg as needed. 2. Omnicef 300 mg for 10 days. 3. Lozol 2.5 mg daily. 4. Prinivil 20 mg twice a day. 5. Norvasc 10 mg daily. 6. Lipitor 40 mg daily. 7. Glucophage 500 mg 2 times a day. 8. ProAir 2 puffs 4 times a day. 9. Protonix 40 mg daily. 10. Atenolol 100 mg in the morning and 50 mg in the evening. 11. Dexilant 30 mg daily. 12. Carafate 1 gram 4 times a day. 13. Ativan 1 pill 3 times a day as needed. ALLERGIES: INCLUDE ADHESIVE TAPES, ANTIHISTAMINES, Celexa, CODEINE, GABY, LATEX, MORPHINE, NAPROSYN, SULFA ANTIBIOTICS, AND SULFONYLUREAS. PAST SURGICAL HISTORY: Significant for lumbar surgery and cholecystectomy. SOCIAL HISTORY: She is not currently a smoker. She denies any alcohol use and drug use. FAMILY HISTORY: Denies. REVIEW OF SYSTEMS: She complains of right hip pain. All other pertinent review of systems is negative. PHYSICAL EXAMINATION: GENERAL: She is awake, alert and oriented x3. She is in no apparent distress. She is very pleasant. HEENT: Pupils are equal, round and reactive to light. Extraocular motion intact. Oral mucosa is pink and moist. HEART: Regular rate per radial pulse. LUNGS: Adriana symmetrically bilaterally with no audible breath sounds. ABDOMEN: Soft, nontender, nondistended. MUSCULOSKELETAL: On physical examination of her hip, she ambulates independently. She does have a slight limp. She has a leg length discrepancy with her right leg being about 1.5 cm shorter than her left. She has very limited flexion and pain with forced internal rotation. Her pain is located deep in her groin. She has full dorsiflexion and plantarflexion of her right ankle. IMAGING DATA: X-rays of the right hip do show advanced osteoarthritis with severe joint space narrowing and osteophyte formation. IMPRESSION: Advanced osteoarthritis of the right hip. PLAN: Will proceed with a Biomet right total hip arthroplasty. Postoperatively, she will be started on aspirin for DVT prophylaxis and kept in the hospital for postoperative medical management.
[2017-12-26] VITALS (11 sets, daily range): BP systolic 123–155; BP diastolic 73–83; PULSE 7–84; TEMP 36.3–36.7; O2SAT 96–100; Ht 165.1 cm; Wt 117.8 kg
[~2017-12-26] VITALS: Ht 165.1 cm; Wt 117.8 kg
[2017-12-26] MEDS: TRANEXAMIC ACID INJ 1,000 MG x 2 Bags IV SCH ×4 (06:30→08:51)
[~2017-12-26 06:43] MED LIST changes: +ACET-1256 PO; +ACETAMINOPHEN 500 MG TAB PO SCH; +CEFAZOLIN 2000MG IV PUSH 15 ML IV SCH; -CRFL PO; +CYAN100020 PO; +DICL1GEL12 TOP; +FAMOTIDINE 20 MG TAB PO SCH; +GABAPENTIN 300 MG CAP PO SCH; +GLC/500 PO; -GLC500 PO; +LACTATED RINGER'S 1000ML 1,000 ML IV SCH; +LACTATED RINGER'S 1000ML 500 ML IV SCH; +LACTATED RINGER'S 1000ML IV SCH; +LORA-741 PO; +PANT40TA PO; -PRLSR20 PO; +ROPIVACAINE 5MG/ML 30 ML 150 MG, BUPIVACAINE 0.5% MPF INJ 30 ML, EpINEphrine HCL INJ 0.... INFIL SCH; +VNTHFA/IN INH
--- NOTE | 2017-12-26 06:53 | History & Physical Bridge Note ---
H&P Re-Evaluation Bridge Note: I have examined the patient, reviewed the History & Physical and in the interval since the performance of the History & Physical I have noted the following changes of clinical significance: No changes noted
[2017-12-26] MEDS ORDERED: BUPIVACAINE 0.5 % 5 MG/1 ML PF 10ML VIAL ONE (07:13)
[2017-12-26] MEDS ORDERED: MIDAZOLAM HCL 1 MG/ML 2ML VIAL ONE ×2 (08:34→09:15)
[2017-12-26] MEDS ORDERED: FENTANYL CITRATE INJ 50 MCG/1 ML 2 ML VIAL ONE (08:35)
[2017-12-26] MEDS ORDERED: ORTHO JOINT ANESTHETIC ONE (08:44)
[2017-12-26] MEDS ORDERED: BACITRACIN 50000 UNIT VIAL ONE ×2 (08:44→08:45)
[2017-12-26] MEDS ORDERED: PHENYLEPHRINE 100MCG/ML 5ML SYR ONE (09:24)
[2017-12-26] MEDS ORDERED: PROPOFOL IV EMULSION 10 MG/ML 20 ML VIAL IV ONE ×2 (09:24→11:10)
[2017-12-26] MEDS ORDERED: LIDOCAINE HCL 2% 2 ML VIAL (20MG/ML) ONE (09:24)
[2017-12-26] MEDS ORDERED: EpHEDrine SULFATE 50MG/5ML SYR ONE (09:59)
[2017-12-26] MEDS ORDERED: EpHEDrine SULFATE INJ 50 MG/ML AMP IV PRN (10:15)
[2017-12-26] MEDS ORDERED: ATROPINE SULFATE 0.1 MG/ML 5ML SYR IV PRN (10:15)
--- NOTE | 2017-12-26 10:47 | DIAGNOSTIC IMAGING REPORT ---
R HIP UNILATERAL 1 VIEW CLINICAL HISTORY: RT XTABLE HIP TAKEN IN OR hip replacement COMPARISON: None. DISCUSSION: Intraoperative images of the right hip for a total right hip arthroplasty expected soft tissue operative change IMPRESSION: Intraoperative images of the right hip for total hip arthroplasty The above report was generated using voice recognition software. It may contain grammatical, syntax or spelling errors. Electronically signed by: Dany Mccray M.D. 12/26/2017 10:46 AM Dictated Date/Time: 12/26/2017 10:45 AM
--- NOTE | 2017-12-26 11:05 | [facility] Post Operative Brief Note ---
Immediate Operative Summary Operative Date Dec 26, 2017. Pre-Operative Diagnosis Primary Osteoarthritis Right Hip Post-Operative Diagnosis Primary Osteoarthritis Right Hip Procedure(s) Performed Right Lateral Total Hip Arthroplasty, Uncemented Surgeon Dr. Walsh Rug Setter [place] Surgeon(s) GRADY Alexandra Estimated Blood Loss 200ml Findings Consistent with Post-Op Diagnosis Specimens A) Right femoral head- bone & tissue Anesthesia Type Spinal MAC Complication(s) none Disposition Disposition: Recovery Room / PACU
[2017-12-26] MEDS ORDERED: ALBUTEROL HFA 8 GM INHALER INH PRN (11:15)
[2017-12-26] MEDS ORDERED: SOD PHOSPHATE/SOD BIPHOSPHATE ENEMA 132 ML BTL PR PRN (11:15)
[2017-12-26] MEDS ORDERED: MAGNESIUM HYDROXIDE SUSP 30 ML UDC PO PRN (11:15)
[2017-12-26] MEDS ORDERED: DEXTROSE 50% 50 ML SYR IV PRN (11:15)
[2017-12-26] MEDS ORDERED: ONDANSETRON INJ 2 MG/ML 2 ML VIAL IV PRN (11:15)
[2017-12-26] MEDS ORDERED: HYDROmorphone INJ 2 MG/ML SYR/VIAL IV PRN (11:15)
[2017-12-26] MEDS ORDERED: CEFAZOLIN IV 2,000 MG in DEXTROSE 5% 50ML 50 ML IV SCH (11:15)
[2017-12-26] MEDS ORDERED: GLUCOSE 10 TABS/TUBE PO PRN (11:15)
[2017-12-26] MEDS ORDERED: METOCLOPRAMIDE HCL INJ 5 MG/ML 2 ML VIAL IV PRN (11:15)
[2017-12-26] MEDS ORDERED: GLUCOSE 40% GEL 15 GM TUBE PO PRN (11:15)
[2017-12-26] MEDS ORDERED: BISACODYL 10 MG SUPP PR PRN (11:15)
[2017-12-26] MEDS ORDERED: GLUCAGON FOR INJ 1 MG VIAL SQ PRN (11:15)
[2017-12-26] MEDS ORDERED: PHARMACY GLYCEMIC MGMT CONSULT PRN (11:30)
--- NOTE | 2017-12-26 11:59 | DIAGNOSTIC IMAGING REPORT ---
R PELVIS/UNILATERAL HIP 1 VIEW CLINICAL HISTORY: IN PACU - A/P PELVIS and LATERAL HIP INCLUDING ALL OF IMPLANT COMPARISON: None. DISCUSSION: Total right hip dysplastic and good position. Good contact between prosthetic and underlying bone. No evidence for acetabular protrusion. Expected soft tissue postoperative change. IMPRESSION: Anatomic alignment status post total right hip arthroplasty. The above report was generated using voice recognition software. It may contain grammatical, syntax or spelling errors. Electronically signed by: Dany Mccray M.D. 12/26/2017 11:57 AM Dictated Date/Time: 12/26/2017 11:57 AM
--- NOTE | 2017-12-26 12:32 | Anesthesiology Progress Note ---
Anesthesia Post Op Note Date & Time Dec 26, 2017 at 12:31 Vital Signs Pain Intensity: 0 Vital Signs Past 12 Hours Date Time Temp Pulse Resp B/P (MAP) Pulse Ox O2 Delivery O2 Flow Rate FiO2 12/26/17 12:10 36.2 77 16 118/77 98 Nasal Cannula 2 12/26/17 12:00 72 16 122/66 98 Nasal Cannula 2 12/26/17 11:50 71 16 128/63 100 Nasal Cannula 2 12/26/17 11:41 77 16 119/62 100 Nasal Cannula 2 12/26/17 11:32 36.2 96 16 116/61 98 Nasal Cannula 2 12/26/17 07:28 36.7 75 20 145/73 98 Room Air Notes Mental Status: alert / awake / arousable, participated in evaluation Pt Amnestic to Procedure: Yes Nausea / Vomiting: adequately controlled Pain: adequately controlled Airway Patency, RR, SpO2: stable & adequate BP & HR: stable & adequate Hydration State: stable & adequate Neuraxial Anesthesia: was administered, sensory block is resolving Anesthetic Complications: no major complications apparent
--- NOTE | 2017-12-26 12:55 | Pharmacy Progress Note ---
Glycemic Control Intl Consult Date of Service Dec 26, 2017. Scope Glycemic Pharmacist consulted by Dr Walsh on 12/26/17 for glycemic control and to write orders per [facility] inpatient glycemic control protocol Objective Weight (Kilograms): 117.8 Accuchecks BSG (last 24hrs): Test 12/26/17 11:54 Bedside Glucose 149 mg/dl (70-90) Recent Pertinent Medications Outpatient Anti-diabetic Regimen: * Metformin 500 mg BID * A1c = unknown Risk Factors for Insulin Resistance: * Recent Surgery: POD #0 s/p hip surgery * Diet: ordered a type 2 diabetes diet postop Assessment & Plan ASSESSMENT: * 67 y/o female admitted for R hip surgery * Pt is maintained on oral antidiabetic agents as an outpatient * Oral agents are not recommended for inpatient use d/t drug interactions, changing PO intake, and difficulty titrating for acute hyper/hypoglycemia. ADA recommends re-initiating outpatient oral agents 1-2 days prior to discharge if/ when appropriate if they were held on admission. * Will hold oral agents for admission and utilize SQ basal bolus insulin regimen which is the recommended regimen for inpatient glycemic control. * Will initiate weight based insulin dosing (using stress level of 2) for insulin janie patient and titrate based on BSG trends. * POC BSG drawn at noon today was 149 mg/dL * She did not receive any periop steroids that I saw so I do not expect significantly elevated BSGs postop PLAN FOR INPATIENT GLYCEMIC CONTROL: * Holding outpatient oral diabetes medications - can resume in 1-2 days as long as no contraindications * No basal insulin for now since no steroids are on board and only on metformin as an outpatient * Correctional Insulin with NOVOLOG per scale ACHS or Q6hrs while NPO * Goal Range: Low 110 mg/dL - High 140 mg/dL * Correction Factor: 20 mg/dL/unit * Nutritional / Prandial insulin per carb ratio of 1 unit per 7 grams CHO consumed * A1c w/ AM labs to assess outpatient control * Please note that the plan above was derived based on current level of insulin resistance and hospital stress. These recommendations are appropriate for inpatient admission only. Plan of care upon discharge will need to be reassessed to avoid potential outpatient hypo/hyperglycemia. Thank you.
[2017-12-26] MEDS ORDERED: INSULIN ASPART 100 UNITS/ML 3 ML PEN SC SCH (13:00)
--- NOTE | 2017-12-26 15:36 | OPERATIVE REPORT ---
DATE OF OPERATION: 12/26/2017 PREOPERATIVE DIAGNOSIS: Advanced osteoarthritis of the right hip. POSTOPERATIVE DIAGNOSIS: Same. PROCEDURE: Right total hip arthroplasty. SURGEON: Dr. Ac Walsh. BUSINESS DEVELOPMENT MANAGER: Santhosh Guerrero PA-C, whose assistance was necessary for positioning the leg and helping with instrumentation. ANESTHESIA: Spinal. COMPLICATIONS: None. CONDITION: Stable to PACU. IMPLANTS USED: I used a Biomet Taperloc total hip arthroplasty system with a size 13 Taperloc stem with a standard offset, a size 52 G7 cup, a neutral E1 poly liner and a size 36 ceramic head with a +3 neck. INDICATIONS: Summer is a pleasant 67-year-old female who has been dealing with chronic right hip and groin pain. X-rays and clinical examination were diagnostic for primary osteoarthritis of the right hip. After failing conservative treatment, she elected to undergo a right total hip arthroplasty. OPERATION AND FINDINGS: On 12/26/2017, she arrived at [facility] for the above procedure. She was seen in the preoperative holding area and the operative extremity was identified and signed. She was given a preoperative antibiotic and a spinal anesthetic. She was taken back to the operating room, laid on the table in supine position and put under basic sedation. She was then put in the lateral decubitus position. The right hip was prepped and draped in sterile fashion. Time-out was done and the patient and operative extremity was properly identified. An anterolateral approach was used. Dissection was taken down through the fascia and the abductors were exposed. The anterior third of the abductors were tenotomized off the greater trochanter. The capsule was excised. The hip was then dislocated out of the wound. The femoral neck was then resected and the femoral head was removed. The acetabulum was then exposed. Time was spent doing a complete circumferential capsular and labral release. Sequential reaming of the acetabulum was then done up to a size 51 reamer. I was able to get good circumferential bleeding bone, so a size 52 G7 cup was impacted into place. I was able to get a good press fit and a single screw was placed. A standard neutral E1 poly liner was then snapped into place. The proximal femur was then exposed. Sequential broaching up to a size 13 broach was done. A standard head and neck assembly was applied. The hip was reduced, brought through a full range of motion. A single flat plate x-ray was taken. I was happy with the size of the complement, I wanted a little bit more length. The hip was then dislocated. The broach was removed. The final size 13 standard offset Taperloc stem was then impacted into place. A ceramic head with a +3 neck was then impacted into place. The hip was reduced, brought through a full range of motion and felt to be stable. I was happy with the leg lengths. The surrounding soft tissues were then injected with 100 mL orthopedic pain control cocktail. The wounds were then irrigated with 3 liters of normal saline solution with bacitracin. The abductor was then tenodesed back to the greater trochanter with transosseous FiberWire sutures and [id number] sutures. Two drains were placed. The fascia was closed with #1 PDS. Skin was closed with 2-0 Vicryl and alisha. A Prevena VAC dressing was applied. She was then taken to the postanesthesia care unit in stable condition. She tolerated the procedure well. I attest to the content of the Intraoperative Record and any orders documented therein. Any exception s are noted below.
[2017-12-26] MEDS: ACETAMINOPHEN IV 1,000 MG in EMPTY BAG 0 ML IV SCH (15:39)
[2017-12-26] MEDS: KETOROLAC TROMETHAMINE 15 MG/ML VIAL IV. SCH ×2 (15:39→21:48)
[2017-12-26] MEDS: CEFAZOLIN IV 2,000 MG in SYRINGE 0 ML IV SCH (15:44)
[2017-12-26] MEDS: SODIUM CHLORIDE 0.9% 1000ML 1,000 ML IV SCH (15:45)
[2017-12-26] MEDS: INSULIN ASPART 100 UNITS/ML 3 ML PEN SC SCH ×2 (19:02→21:51)
[2017-12-26] MEDS: SENNA 8.6 MG TAB PO SCH (21:44)
[2017-12-26] MEDS: LORAZEPAM 0.5 MG TAB PO PRN (21:44)
[2017-12-26] MEDS: LISINOPRIL 20 MG TAB PO SCH (21:46)
[2017-12-26] MEDS: ASPIRIN 325 MG ECTAB PO SCH (21:46)
[2017-12-26] MEDS: DOCUSATE SODIUM 100 MG CAP PO SCH (21:46)
[2017-12-26] MEDS: ATORVASTATIN 40 MG TAB PO SCH (21:47)
[2017-12-26] MEDS: AMLODIPINE BESYLATE 5 MG TAB PO SCH (21:47)
[2017-12-27] MEDS: ACETAMINOPHEN IV 1,000 MG in EMPTY BAG 0 ML IV SCH ×2 (00:22→07:54)
[2017-12-27] MEDS: CEFAZOLIN IV 2,000 MG in SYRINGE 0 ML IV SCH (00:22)
[2017-12-27] MEDS: SODIUM CHLORIDE 0.9% 1000ML 1,000 ML IV SCH ×2 (02:00→09:30)
[2017-12-27 03:50] VITALS: BP 93/67; PULSE 84; TEMP 36.5; O2SAT 98
[2017-12-27] MEDS: KETOROLAC TROMETHAMINE 15 MG/ML VIAL IV. SCH ×4 (04:22→21:43)
[2017-12-27 05:52] LABS: BASO % 0.1 %; BASO ABS # 0.01 K/uL (0-0.2); EOS % 0.2 %; EOS ABS # 0.02 K/uL (0-0.5); HEMATOCRIT 35.4 % (37-47); HEMOGLOBIN 12.2 g/dL (12.0-16.0); IG# 0.03 K/uL (0.00-0.02); LYMPH % 7.7 %; LYMPH ABS # 0.91 K/uL (1.2-3.4); MEAN CELL VOLUME 90.1 fL (80-100); MEAN CORPUSCULAR HGB CONC 34.5 g/dl (32-36); MEAN PLATELET VOLUME 10.1 fL (7.4-10.4); MONO % 8.3 %; MONO ABS # 0.98 K/uL (0.11-0.59); NEUT % 83.4 %; NEUT ABS # 9.81 K/uL (1.4-6.5); PLATELET COUNT 318 K/uL (130-400); RED CELL DISTRIBUTION WIDTH CV 13.9 % (11.5-14.5); RED CELL DISTRIBUTION WIDTH SD 45.4 fL (36.4-46.3); WHITE BLOOD COUNT 11.76 K/uL (4.8-10.8)
[2017-12-27 06:24] LABS: CALCIUM 8.8 mg/dl (8.5-10.1); CREATININE 0.99 mg/dl (0.60-1.20); POTASSIUM 3.9 mmol/L (3.5-5.1)
[2017-12-27 07:12] VITALS: BP 149/79; PULSE 75; TEMP 36.5; O2SAT 98
[2017-12-27] MEDS: DOCUSATE SODIUM 100 MG CAP PO SCH ×2 (07:57→20:36)
[2017-12-27] MEDS: LISINOPRIL 20 MG TAB PO SCH ×2 (07:57→20:36)
[2017-12-27] MEDS: CYANOCOBALAMIN 500 MCG TAB (VIT B-12) PO SCH (07:57)
[2017-12-27] MEDS: ASPIRIN 325 MG ECTAB PO SCH ×2 (07:57→20:37)
[2017-12-27] MEDS: INDAPAMIDE 1.25 MG TAB PO SCH (07:58)
[2017-12-27] MEDS: MULTIVITAMIN TAB PO SCH (07:58)
[2017-12-27] MEDS: PANTOprazole SOD 40 MG TAB PO SCH (07:58)
[2017-12-27] MEDS: INSULIN ASPART 100 UNITS/ML 3 ML PEN SC SCH ×4 (08:04→21:41)
[2017-12-27 08:09] LABS: HEMOGLOBIN A1C 6.7 % (4.5-5.6)
[2017-12-27] MEDS ORDERED: LANTUS PER UNIT CHARGE SQ ONE (09:30)
--- NOTE | 2017-12-27 09:33 | Discharge Instructions ---
Discharge Instructions Date of Service Dec 27, 2017. Admission Reason for Admission: Right Hip Degenerative Joint Disease Discharge Discharge Diagnosis / Problem: Right Total Hip Discharge Goals Goal(s): Decrease discomfort, Improve function Activity Recommendations Activity Limitations: as noted below . Instructions / Follow-Up Instructions / Follow-Up Activity and Therapy Recommendations: * If you are using [facility] then Physical Therapy will be provided until they feel you are ready to start Outpatient Physical Therapy. If you are not using a Home Health agency then Outpatient Physical Therapy should start about 3-5 days from your day of surgery. Therapy will last about 3-6 weeks * You were shown a series of exercises in the hospital. Do these exercises three times each day including the exercises you were shown in physical therapy. * Get up and walk several times each day.~ For the first four weeks, try not to stand or walk for more than one hour at a time. If you do stand or walk for more than one hour, you will not hurt anything, but your leg will likely swell.~ ~ * As you feel comfortable, you may change from the walker or crutches to a cane and~then to independent walking. Medications: * Narcotic You will likely be sent home from the hospital with a prescription for the narcotic pain medication that worked best throughout your stay. * Aspirin Most patients will be required to take Aspirin 325mg twice a day for 6 weeks after surgery. This is obtained [id number] and a prescription is not necessary. * Other medications may be prescribed for specific circumstances. If you have any questions, please call the office at . * Resume previous home medications unless otherwise instructed TEDs/Elastic Stockings: The white elastic stockings help limit swelling and prevent blood clots from forming in your legs. The more you wear them, the more they work. Wear them for six weeks. Dressing Care: The purple VAC dressing will be on for about 8 days. The batteries will run out. When they do, take the dressing off and leave the alisha open to air or cover them with a dressing so they do not rub on your clothes. Showering: You may shower with the VAC dressing. Do not let the shower spray directly on it. Things To Watch For: * Drainage from the incision site that occurs more than one week after your surgery. * Increased redness at the incision site. * Fever above 102 degrees Fahrenheit. * Unusual chest pain or shortness of breath. * Call [facility] at with any of the above problems Follow-Up Visit: Follow-up with Dr. Walsh 2 weeks after your day of surgery. An appointment was probably scheduled when you signed-up for surgery in the office. If you have any questions call Office Instructions: More detailed instructions as well as Frequently Asked Questions were provided in a folder by our office when you signed-up for surgery. Please review these instructions when you get home. If you have any further questions or concerns, please feel free to call the office at [phone] Current Hospital Diet Patient's current hospital diet: Diabetes Type 2 Diet Discharge Diet Recommended Diet: Diabetes Type 2 Diet Procedures Procedures Performed: Right Lateral Total Hip Arthroplasty, Uncemented Pending Studies Studies pending at discharge: no Laboratory Results Hemoglobin A1c Test 12/27/17 05:27 Range/Units Estimated Average Glucose 146 mg/dl Hemoglobin A1c 6.7 H 4.5-5.6 % Medical Emergencies . Who to Call and When: Medical Emergencies: If at any time you feel your situation is an emergency, please call 911 immediately. . Non-Emergent Contact Non-Emergency issues call your: Surgeon Call Non-Emergent contact if: wound has increased drainage, wound has increased redness . "Provider Documentation" section prepared by Ac Walsh. . VTE Core Measure Inpt VTE Proph given/why not?: Other Anticoagulation (Aspirin 325 twice a day for 6 weeks)
--- NOTE | 2017-12-27 10:03 | PROGRESS NOTE ---
DATE: 12/27/2017 CHIEF COMPLAINT: Status post right total hip arthroplasty postop day #1. PROGRESS: Summer was seen and examined at bedside today. Overall, she is doing fairly well. She was having a little more soreness today than she had last night. She has been up and ambulating to the bathroom and around the room. The Oconnell has been taken out. She has no complaints. PHYSICAL EXAMINATION: RIGHT HIP: Her leg lengths are essentially equal. She has active dorsiflexion and plantarflexion of her right ankle. The Prevena VAC dressing is to suction and the drain is to suction. Her vital signs are stable on room air and she is voiding on her own. LABORATORIES: She has an H&H today of 12.2 and 35.4. Her glucose is 152 and she is on insulin. IMAGING DATA: X-rays postoperatively of the right hip showed the prosthesis to be in anatomic alignment without any evidence of fracture, dislocation or loosening. IMPRESSION: Status post right total hip arthroplasty postop day #1. PLAN: At this point, she is doing well and happy with her progress. She is a little more soreness than she had yesterday and will just work on pain control with that. She can be up and ambulating with physical therapy. She is on aspirin for DVT prophylaxis. We will see her tomorrow morning. At that point, I plan to have the nursing staff pull the Hemovac drain and discharge her to home.
--- NOTE | 2017-12-27 11:57 | Pharmacy Progress Note ---
Pharmacy Glycemic Short Note 2 Date of Service Dec 27, 2017. OUTPATIENT ANTIDIABETIC REGIMEN: * Metformin 500 mg BID * A1c 6.7% on 12/27/17 ASSESSMENT: * Ms. Johnson is POD #1 R hip surgery * She received 16 units of insulin yesterday, with most BSGs above goal * This could be secondary to stress from the surgery, Decadron in the ortho mix (which I would not suspect to have too much of an effect due to it's route of administration), and/or metformin held 2 days prior to surgery * At this point, with fasting above goal and elevated BSGs yesterday on just Novolog coverage, will plan to give a one time dose of Lantus (~0.2 units/kg) and continue the same CF/CR * Looks like plan is for discharge tomorrow so will resume metformin in the AM PLAN FOR INPATIENT GLYCEMIC CONTROL: * Resume metformin tomorrow AM * Basal insulin * Lantus 20 units x 1 this AM * Bolus insulin * NovoLog per scale ACHS or Q6hrs while NPO * Goal Range: Low 110 mg/dL - High 140 mg/dL * Correction Factor: 20 mg/dL/unit * Nutritional / Prandial insulin per carb ratio of 1 unit per 7 grams CHO consumed PLAN FOR DISCHARGE: * A1c acceptable - continue outpatient regimen
[2017-12-27] MEDS: OXYCODONE HCL IR 5 MG TAB (IMMEDIATE RELEASE) PO PRN (14:24)
[2017-12-27] MEDS: ACETAMINOPHEN 500 MG TAB PO SCH ×2 (15:03→21:42)
[2017-12-27 15:14] VITALS: BP 124/69; PULSE 82; TEMP 36.7; O2SAT 97
[2017-12-27 20:30] VITALS: BP 151/81; PULSE 70
[2017-12-27] MEDS: ATORVASTATIN 40 MG TAB PO SCH (20:35)
[2017-12-27] MEDS: AMLODIPINE BESYLATE 5 MG TAB PO SCH (20:36)
[2017-12-27] MEDS: SENNA 8.6 MG TAB PO SCH (20:36)
[2017-12-27 23:30] VITALS: BP 146/82; PULSE 84; TEMP 36.7; O2SAT 99
[2017-12-28] MEDS ORDERED: INSULIN ASPART 100 UNITS/ML 3 ML PEN SC ONE (02:00)
[2017-12-28] MEDS: KETOROLAC TROMETHAMINE 15 MG/ML VIAL IV. SCH ×3 (04:30→14:32)
[2017-12-28] MEDS: OXYCODONE HCL IR 5 MG TAB (IMMEDIATE RELEASE) PO PRN (04:56)
[2017-12-28] MEDS: ACETAMINOPHEN 500 MG TAB PO SCH ×3 (05:48→21:50)
[2017-12-28 06:41] VITALS: BP 120/70; PULSE 72; TEMP 36.4; O2SAT 96
[2017-12-28 07:06] VITALS: BP 120/70; PULSE 72; TEMP 36.4; O2SAT 96
[2017-12-28] MEDS: ASPIRIN 325 MG ECTAB PO SCH ×2 (07:42→21:50)
[2017-12-28] MEDS: DOCUSATE SODIUM 100 MG CAP PO SCH ×2 (07:42→21:50)
[2017-12-28] MEDS: LISINOPRIL 20 MG TAB PO SCH ×2 (07:42→21:49)
[2017-12-28] MEDS: CYANOCOBALAMIN 500 MCG TAB (VIT B-12) PO SCH (07:42)
[2017-12-28] MEDS: PANTOprazole SOD 40 MG TAB PO SCH (07:42)
[2017-12-28] MEDS: MULTIVITAMIN TAB PO SCH (07:42)
[2017-12-28] MEDS: INDAPAMIDE 1.25 MG TAB PO SCH (07:42)
[2017-12-28] MEDS: METFORMIN HCL 500 MG TAB PO SCH ×2 (07:42→17:30)
[2017-12-28] MEDS: INSULIN ASPART 100 UNITS/ML 3 ML PEN SC SCH ×4 (07:45→21:00)
[2017-12-28] MEDS: LORAZEPAM 0.5 MG TAB PO PRN (08:53)
[2017-12-28] MEDS ORDERED: ASPEC325 PO (09:49)
[2017-12-28] MEDS ORDERED: ULT50X PO (09:49)
--- NOTE | 2017-12-28 10:20 | PROGRESS NOTE ---
DATE: 12/28/2017 CHIEF COMPLAINT: Status post right total hip arthroplasty postop day #2. PROGRESS: Summer was seen and examined at bedside today. She ambulated minimally yesterday with physical therapy. She was able to get up and around a little bit but not too far. She has been having trouble sleeping, in the past 3 nights she has not slept much. She says today she feels a little "cold in the inside and hot on the outside." She has a blanket on in the room. She says she does not feel sick, it is hard to explain. Her vital signs have all been stable. She is on insulin and her glucose has been stable. She is voiding on her own. She has been having bowel movements. She has been up and ambulating. She has been having some pain in her hip and she thinks it may be a reaction to the narcotic pain medication. PHYSICAL EXAMINATION: RIGHT HIP: The Prevena VAC dressing is to suction. Her leg lengths are equal. She has active dorsiflexion and plantarflexion of her right ankle and sensation is intact. LABORATORY DATA: Her glucose is currently 107 but it has been between 147 to 107. Her vital signs are all stable on room air. She is voiding on her own. She had a bowel movement yesterday. IMPRESSION: Status post right total hip arthroplasty postop day #2. PLAN: At this point, she is doing about as well as expected. She will be seen by physical therapy again today. Therapy has recommended return home once medically stable and she would like to go home today. She is currently set up with [facility]. We will see how she does throughout the day today. I discontinued her oxycodone and her Dilaudid and I started her on tramadol. She will keep taking the aspirin for DVT prophylaxis. She can go home later this afternoon if she is feeling well; if not, she can stay until tomorrow morning.
[2017-12-28 11:24] VITALS: TEMP 36.4
[2017-12-28] MEDS: TRAMADOL HCL 50 MG TAB PO PRN ×3 (12:41→21:51)
[2017-12-28 12:52] LABS: INFLUENZA B ANTIGEN Neg for Influ B (NEG)
[2017-12-28 15:04] VITALS: BP 101/70; PULSE 82; TEMP 37.1; O2SAT 95
[2017-12-28] MEDS ORDERED: KETOROLAC TROMETHAMINE 15 MG/ML VIAL IV. PRN (15:30)
[2017-12-28] MEDS ORDERED: NURSING VERBAL MED ORDER ONE (15:30)
[2017-12-28] MEDS: SENNA 8.6 MG TAB PO SCH (21:50)
[2017-12-28] MEDS: AMLODIPINE BESYLATE 5 MG TAB PO SCH (21:50)
[2017-12-28] MEDS: ATORVASTATIN 40 MG TAB PO SCH (21:50)
[2017-12-28] MEDS ORDERED: ZOLPIDEM TARTRATE 5 MG TAB PO SCH (22:00)
[2017-12-29] VITALS: BP 109/63; PULSE 94; TEMP 36.7; O2SAT 100
[2017-12-29] MEDS: TRAMADOL HCL 50 MG TAB PO PRN ×2 (02:34→13:56)
[2017-12-29] MEDS: ACETAMINOPHEN 500 MG TAB PO SCH ×2 (05:40→13:56)
[2017-12-29 07:45] VITALS: BP 100/65; PULSE 81; TEMP 36.5; O2SAT 93
[2017-12-29] MEDS: PANTOprazole SOD 40 MG TAB PO SCH (08:32)
[2017-12-29] MEDS: DOCUSATE SODIUM 100 MG CAP PO SCH (08:32)
[2017-12-29] MEDS: CYANOCOBALAMIN 500 MCG TAB (VIT B-12) PO SCH (08:32)
[2017-12-29] MEDS: MULTIVITAMIN TAB PO SCH (08:32)
[2017-12-29] MEDS: METFORMIN HCL 500 MG TAB PO SCH (08:32)
[2017-12-29] MEDS: ASPIRIN 325 MG ECTAB PO SCH (08:33)
[2017-12-29] MEDS: LISINOPRIL 20 MG TAB PO SCH (08:33)
[2017-12-29] MEDS: INDAPAMIDE 1.25 MG TAB PO SCH ×2 (08:33→08:37)
[2017-12-29] MEDS: INSULIN ASPART 100 UNITS/ML 3 ML PEN SC SCH ×2 (08:34→13:03)
== END 2017-12-29 14:45 | disposition home health service (06) | DRG 470 ==
LOC: C.ACU 06:43 → C.3E 07:23 → ENRESERV 12:02
PROVIDERS: ADMIT Orthopaedic Surgery; ATTEND Orthopaedic Surgery
PROC: 0SR904A Replacement of Right Hip Joint with Ceramic on Polyethylene Synthetic Substitute, Uncemented, Open Approach (ICD-10-PCS; principal; 2017-12-26 09:30)
DX: M16.11 Unilateral primary osteoarthritis, right hip (principal); Z68.41 Body mass index [BMI] 40.0-44.9, adult; I10 Essential (primary) hypertension; E78.5 Hyperlipidemia, unspecified; E11.9 Type 2 diabetes mellitus without complications; E66.9 Obesity, unspecified; Z79.84 Long term (current) use of oral hypoglycemic drugs; Z79.899 Other long term (current) drug therapy